=== PATIENT | female | born 1955 | race Caucasian/White ===

== ENCOUNTER 2023-04-05 11:20 | Outpatient (OUT) | payer MEDICARE, BC, SELFPAY ==
[2023-04-05 12:18] LABS: SARS-CoV-2 Ag NEGATIVE (NEGATIVE)
[2023-04-06 15:33] LABS: SARS-CoV-2 NAA NOT DETECTED (NOT DETECTE)
== END 2023-04-05 11:21 | disposition home or self-care (01) ==
PROVIDERS: PCP Internal Medicine; Visit Provider Internal Medicine
DX: Z20.822 Contact with and (suspected) exposure to COVID-19 (principal)
CPT/HCPCS: 87635; 87811

== ENCOUNTER 2023-05-04 08:44 | Outpatient (OUT) | payer MEDICARE, BC, SELFPAY ==
--- NOTE | 2023-05-04 08:47 | MM_ITS ---
Patient: TAMAR IVEY Exam Date: 05/04/2023 : 1955 Gender:F Ordering : DR Brayan Gaviria D.O. Admission #: [id number] Family : Order #: [id number] CLICK HERE TO VIEW EXAM RADIOLOGY REPORT PROCEDURE: MM TOMOSYNTHESIS SCREENING BI COMPARISON: MM TOMOSYNTHESIS SCREENING BI, 12/06/2020. MM TOMOSYNTHESIS SCREENING BI, 08/29/2012. INDICATIONS: Screening Calculator Name NCI Breast Cancer Risk Assessment Tool 5 Year Breast Cancer Risk 1.90% Lifetime Breast Cancer Risk 6.70% Personal Breast Cancer No Personal Ovarian Cancer No Treatments None Family Cancers Aunt-maternal with colon cancer at age 82. LOCATION: [facility] BREAST COMPOSITION: Almost entirely fatty. FINDINGS: DIAGNOSTIC CATEGORY 2--BENIGN FINDING: RIGHT BREAST: No significant suspicious finding. Scattered benign-appearing calcifications are present. No significant change has occurred. LEFT BREAST: No significant suspicious finding. Scattered benign-appearing calcifications are present. No significant change has occurred. RECOMMENDATIONS: ROUTINE MAMMOGRAM AND CLINICAL EVALUATION IN 12 MONTHS. PLEASE NOTE: A NORMAL MAMMOGRAM DOES NOT EXCLUDE THE POSSIBILITY OF BREAST CANCER. A CLINICALLY SUSPICIOUS PALPABLE LUMP SHOULD BE BIOPSIED. Dictated by: Darrin Dia M.D. on 05/05/2023 at 12:37 Approved by: Darrin Dia M.D. on 05/05/2023 at 12:39
--- NOTE | 2023-05-04 08:48 | XR_ITS ---
The [address] [address] Patient Name: TAMAR IVEY MRN: [id number] date: 1955 Sex: F Assigned Patient Location: [facility] Current Patient Location: [facility] Accession/Order Number: [id number] Exam Date: 05/04/2023 09:10 Report Date: 05/04/2023 09:43 At the request of: TRAVIS YAN Procedure: XR DEXA axial skeleton DEXA Bone Density Study CLINICAL:67 years Female. Evaluate bone mineral density. FINDINGS: The bone density study was assessed by dual-energy x-ray absorptiometry with the Hologic scanner. The test results are expressed in T-Score, which is used for diagnosis for osteoporosis, and reflects the standard deviations from the mean peak bone mineral density in young adults. Additional information regarding the Z-Score reflects the standard deviations from the mean peak bone mineral density for age- and gender- matched subject. Lumbar Spine (L1-L4): BMD (gm/cm2): 1.219 T-Score: 0.3 Left TOTAL Hip: BMD (gm/cm2): 0.889 T-Score: -0.9 Left hip, NECK: BMD (gm/cm2): 0.769 T-Score: -1.9 Right TOTAL Hip: BMD (gm/cm2): 0.857 T-Score: -1.2 Right hip, NECK: BMD (gm/cm2): 0.700 T-Score: -2.4 XR/XR DEXA axial skeleton IMPRESSION: 1. Bone mineral density by WHO criteria: Osteopenia. Fracture risk is increased. REFERENCE: In postmenopausal women and males 50 or over, comparison of the measured bone mineral density with the average value in young normal subjects (the T-Score) has been found to be useful in assessing fracture risk. Fracture risk approximately doubles for each 1.0 standard deviation (SD) that the individuals hip or spine bone mineral density is below the average value of young normal subjects. The World Health Organization (WHO) has provided the following definitions: 1. Normal: T-Score within one standard deviation of young adult mean value (T-Score at or above -1.0). 2. Osteopenia (low bone mass): T-Score more than one standard deviation below the young adult mean but less than 2.5 standard deviations below the young adult mean (T-Score between -1.0 and -2.5). 3. Osteoporosis: T-Score at or more than 2.5 standard deviations below the young adult mean (T-Score at or less than -2.5). 4. Severe Osteoporosis (established osteoporosis): T-Score more than 2.5 standard deviations below young adult and one or more fragility fracture (T-Score less than -2.5 plus fragility fractures). Electronically authenticated by: JACEK WOODY Date: 05/04/2023 09:43
[2023-05-04 11:54] LABS: Basophils Absolute Auto 0.1 10^3/uL (0.0-0.1); Basophils Percent Auto 1.2 % (0.2-2.0); Eosinophils Absolute Auto 0.2 10^3/uL (0.0-0.7); Eosinophils Percent Auto 2.1 % (0.9-7.0); Hematocrit 42.1 % (36.0-48.0); Hemoglobin 13.9 g/dL (12.0-16.0); Immature Granulocytes Abs Auto 0.01 10^3/uL (0.00-0.03); Immature Granulocytes Pct Auto 0.1 % (0.0-0.5); Lymphocytes Absolute Auto 1.9 10^3/uL (1.2-3.8); Lymphocytes Percent Auto 25.6 % (20.5-60.0); Mean Corpuscular Hemoglobin 30.8 pg (26.7-34.0); Mean Corpuscular Volume 93.1 fL (81.0-99.0); Mean Platelet Volume 8.6 fL (9.5-13.5); Monocytes Absolute Auto 0.5 10^3/uL (0.3-0.8); Monocytes Percent Auto 7.3 % (1.7-12.0); Neutrophils Absolute Auto 4.7 10^3/uL (1.4-6.5); Neutrophils Percent Auto 63.7 % (43.0-75.0); Platelet Count 304 10^3/uL (150-450); Red Blood Count 4.52 10^6/uL (4.20-5.40); Red Cell Distribution Width 12.8 % (11.0-15.0); White Blood Count 7.3 10^3/uL (4.0-11.0)
[2023-05-04 12:36] LABS: Anion Gap 7.8; BUN Creatinine Ratio 18.9; Calcium 9.1 mg/dL (8.5-10.1); Carbon Dioxide 29.9 mmol/L (21.0-32.0); Chloride 101 mmol/L (98-107); Estimated GFR (African America >60 (>=60); Estimated GFR (Non-African Ame >60 (>=60); Glucose 83 mg/dL (74-106); Potassium 4.7 mmol/L (3.5-5.1); Sodium 134 mmol/L (136-145); Thyroid Stimulating Hormone 1.194 uIU/mL (0.358-3.740)
[2023-05-05 07:10] LABS: Vitamin D, 25-Hydroxy 81.9 ng/mL (30.0-100.0)
== END 2023-05-04 08:45 | disposition home or self-care (01) ==
LOC: MAMMO 08:44
PROVIDERS: PCP Internal Medicine; Visit Provider Internal Medicine
DX: Z00.00 Encounter for general adult medical examination without abnormal findings (principal); Z12.31 Encounter for screening mammogram for malignant neoplasm of breast; Z78.0 Asymptomatic menopausal state; R53.83 Other fatigue; E55.9 Vitamin D deficiency, unspecified; Z80.0 Family history of malignant neoplasm of digestive organs; M85.80 Other specified disorders of bone density and structure, unspecified site
CPT/HCPCS: 36415; 77063; 77067; 77080; 80048; 82306; 84443; 85025

== ENCOUNTER 2024-05-18 10:48 | Outpatient (RCR) | payer MEDICARE, BC, SELFPAY | END 2024-06-16 14:00 | disposition home or self-care (01) | LOC: PT 10:48 | PROVIDERS: PCP Internal Medicine; Visit Provider Orthopaedic Surgery | DX: M17.11 Unilateral primary osteoarthritis, right knee (principal) | CPT/HCPCS: 97110; 97112; 97140; 97162 ==

== ENCOUNTER 2025-02-15 13:31 | Outpatient (OUT) | payer MEDICARE, BC, SELFPAY ==
--- OUTSIDE RECORDS SUMMARY | 2025-02-01 10:15 | XMS_ITS | Encounter Summary ---
Author Organization [facility] Address [address] [place] [address] Care Team Providers Care Fruit Washer Name Role Phone Brayan Gaviria DO Primary Care Provider Encounter Details Date Type Department Care Team (Late st Contact Info) Description 02/01/2025 10:15 AM EDT Office Visit [facility] [address] [facility] [address] [place] [address] Maria R Ramirez MD [address] [facility] [address] [place] [address] Seborrheic keratosis (Primary Dx); Lentigines; Seborrheic keratosis, inflamed; History of SCC (squamous cell carcinoma) of skin Social History Tobacco Use Types Packs/Day Years Used Date Smoking Tobacco: Former Cigarettes 1 43.8 0 04/27/1975 - 01/26/2019 Smokeless Tobacco: Never Alcohol Use Standard Drinks/Week Comments Never 0 (1 standard drink = 0.6 oz pur e alcohol) Comments Unknown Sex and Gender Information Value Date Recorded Sex Assigned at Female 01/09/2024 11:56 AM EDT Legal Sex Female 7:09 PM EDT Gender Identity Female 01/09/2024 11:56 AM EDT Sexual Orientation Not on file documented as of this encounter Progress Notes * Maria R Ramirez MD - 02/01/2025 10:15 AM EDT Skin Check Location: Patient requests a full body skin examination Dermatologic history: history of Actinic Keratosis, history of Basal Cell Carcinoma, history of Squamous Cell Carcinoma Last visit: Last skin check 1 year ago, last office visit 01/30/2025 (Mohs to right zygomatic area) Lesions: Location: arms, chest Duration: months Quality: itchy Associated symptoms: enlarged, rough Treatments: none Established patient All pertinent medical history, medications, and allergies were reviewed. General Exam: alert, oriented to person, place, and time, normal affect, well appearing Unaccompanied Areas not examined despite medical recommendation: Under socks Scalp, Examined , exam limited by hair Right leg Examined Head, Face Examined Left leg Examined Neck Examined Right foot Not Examined Chest Examined Patient kept bra on Left foot Not Examined Back Examined Buttocks Examined Patient kept underwear on Abdomen Examined Digits,nails: Examined Right arm Examined Left arm Examined Lymphatics: Not examined Hands Examined Skin Exam 1. SEBORRHEIC KERATOSIS Generalized Stuck on verrucous, jaimes-brown papules and plaques. Patient was counseled regarding these benign growths. Removal is normally not necessary, but they may be removed if they are symptomatic or for cosmetic reasons. 2. LENTIGINES Generalized Scattered jaimes macules in sun-exposed areas. The patient was informed that lentigines are benign pigmented lesions that occur on sun-exposed andsun-damaged skin. No treatment is necessary. Recommended regular use of broad spectrum sunscreen SPF 30 or higher 3. SEBORRHEIC KERATOSIS, INFLAMED (3) Left Upper Arm - Anterior, Right Breast, Right Forearm - Posterior [place] and brown stuck on verrucous scaly papule with surrounding erythema The patient was informed that symptomatic seborrheic keratoses are benign growths that become inflamed, itchy, tender, traumatized, caught on clothing, or bleed. Symptomatic lesions can be treated with cryotherapy or curretage. Thicker lesions treated with cryotherapy may require more than one treatment. The patient was instructed to notify the office if abnormal redness or tenderness develops atthe treatment site. Cryotherapy today, see procedure note. Diagnosis: Inflamed seborrheic keratosis Indication: Inflamed Consent: Verbal consent was obtained and risks were discussed, including, but not limited to risks of scarring, darker or alligator shear operator pigmentary changes, recurrence, incomplete removal and infection. Method: Liquid nitrogen was used to treat the lesion(s) with two 5-10 second freeze-thaw cycles Number of lesions treated: 3 Post-procedure instructions: Instructions were given orally and in writing. The office will be contacted if the lesion fails to resolve despite treatment, or if a side effect develops such as abnormal crusting, scabbing, redness or tenderness Cryotherapy, skin lesion - Left Upper Arm - Anterior, Right Breast, Right Forearm - Posterior 4. HISTORY OF SCC (SQUAMOUS CELL CARCINOMA) OF SKIN Left Orthodoxy No evidence of recurrence at SCC scar. The patient was counseled that scars from excisional sites of nonmelanoma skin cancers should be monitored closely for recurrence. The patient was instructed to contact the office for any new, changing, or symptomatic moles. The patient was also instructed to contact the office for any new lesions that develop within or around the previous surgery scar. Next Visit: 6 months documented in this encounter Miscellaneous Notes * Addendum Note - Maria R Ramirez MD - 02/01/2025 10:15 AM EDTAddended by: MARIA R RAMIREZ on: 02/01/2025 04:21 PM Modules accepted: Level of Service documented in this encounter Plan of Treatment Upcoming Encounters Date Type Department Care Team (Late st Contact Info) Description 01/31/2026 10:05 AM EDT Office Visit [facility] [address] [place] [phone] Maria R Ramirez MD [address] [place] [address] documented as of this encounter Procedures Procedure Name Priority Date/Time Associated Diagnosis Comments CRYOTHERAPY SKIN LESION Routine 02/02/20 10:08 AM EDT Seborrheic keratosis, inflamed documented in this encounter Results * Cryotherapy, skin lesion (02/01/2025 10:08 AM EDT) us Maria R Ramirez MD DERM PROCEDURE ORDERABLES Fin al Result documented in this encounter Visit Diagnoses Diagnosis Seborrheic keratosis- Primary Lentigines Seborrheic keratosis, inflamed History of SCC (squamous cell carcinoma) of skin Personal history of other malignant neoplasm of skin documented in this encounter Care Teams Fruit Washer Relationship Specialty Start Date End Date Brayan Gaviria DO [address] [place] [phone] PCP - General Internal Medicine 03/02/24 documented as of this encounter
--- OUTSIDE RECORDS SUMMARY | 2025-02-15 13:33 | XMS_ITS | Encounter Summary ---
Author Organization [facility] Address [address] [facility] [place] [address] Care Team Providers Care Chucking Machine Set Up Operator Tool Name Role Phone Brayan Gaviria DO Primary Care Provider Encounter Details Date Type Department Care Team (Late st Contact Info) Description 02/01/2025 Bamboo flowsheet [facility] [address] [place] [address] Magdalena Cuenca MD [address] [facility] [address] [place] [address] Social History Tobacco Use Types Packs/Day Years [...] on file documented as of this encounter Plan of Treatment Upcoming Encounters Date Type Department Care Team (Late st Contact Info) Description 01/31/2026 10:05 AM EDT Office Visit [facility] [address] [place] [address] Magdalena Cuenca MD [address] [facility] [address] [place] [address] documented as of this encounter Visit Diagnoses Not on filedocumented in this encounter Care Teams Chucking Machine Set Up Operator Tool Relationship Specialty Start Date End Date Brayan Gaviria DO [address] [place] [phone] PCP - General Internal Medicine 03/02/24 documented as of this encounter
--- OUTSIDE RECORDS SUMMARY | 2025-02-15 13:33 | XMS_ITS | Clinical Summary ---
Author Organization [facility] Address [address] [place] [address] Care Team Providers Care Sheet Rock Installation Helper Name Role Phone Unavailable Primary Care Provider Unavailabl e Social History Tobacco Use Types Packs/Day Years Used Date Smoking Tobacco: Never Assessed [place] Safety & Environment Answer Date Rec orded Fear of Current or Ex-Partner Not on file Emotionally Abused Not on file 11/04/2023 Physically Abused Not on file 11/04/2023 Sexually Abused Not on file 11/04/2023 Physically or Sexually Abused Not on file Sex and Gender Information Value Date Recorded Sex Assigned at Not on file Gender Identity Not on file Sexual Orientation Not on file Plan of Treatment Not on file
--- OUTSIDE RECORDS SUMMARY | 2025-02-15 13:33 | XMS_ITS | Referral Summary ---
Author Organization [facility] Address [address] [place] [address] Care Team Providers Care Hat Block Maker Name Role Phone Unavailable Primary Care Provider [...]
--- OUTSIDE RECORDS SUMMARY | 2025-02-15 13:33 | XMS_ITS | Encounter Summary ---
Author Organization [facility] Address [address] [facility] [place] [address] Care Team Providers Care Land Use Planner Name Role Phone Brayan Gaviria DO Primary Care Provider [phone] Encounter Details Date Type Department Care Team (Latest Contact Info) Description 02/01/2025 Travel Social History Tobacco Use Types Packs/Day Years [...] DERM [address] [place] [address] Magdalena Cuenca MD [address] [facility] [address] [place] [address] documented as of this encounter Visit Diagnoses Not on filedocumented in this encounter Care Teams Land Use Planner Relationship Specialty Start Date End Date Brayan Gaviria DO [address] [place] [phone] PCP - General Internal Medicine 03/02/24 documented as of this encounter
--- OUTSIDE RECORDS SUMMARY | 2025-02-15 13:33 | XMS_ITS | Patient Health Record ---
Author Organization [facility] Address [address] [place] [address] Care Team Providers Care Yard Person Name Role Phone Everette Yasronaldo Primary Care Provider Unavailabl e Reason For Referral No Information Plan Of Treatment No Information Insurance Providers Payer Name Payer Address Payer Phone Subscriber Number Group Number Insured Name Patient Relationship to Insured Coverage Start Date Coverage End Date PROMPT PAY/Bill to Patient YeceniaMaribell david Self - patient is the insured
--- OUTSIDE RECORDS SUMMARY | 2025-02-15 13:33 | XMS_ITS | Encounter Summary ---
Author Organization [facility] Address [address] [place] [address] Care Team Providers Care Adobe Block Maker Name Role Phone Brayan Gaviria DO Primary Care Provider [phone] Brayan Gaviria DO Primary Care Provider [phone] Encounter Details Date Type Department Care Team (Late st Contact Info) Description 01/20/2023 Abstract [facility] [place] [address] Magdalena Cuenca MD [address] [facility] [address] [place] [address] Social History Tobacco Use Types Packs/Day Years Used Date Smoking Tobacco: Never Tobacco Cessation:Counseling Given: Not Answered Comments Unknown Sex and Gender Information Value [...] Office Visit [facility] [address] [facility] [address] [place] [phone] Magdalena Cuenca MD [address] [facility] [address] [place] [address] documented as of this encounter Visit Diagnoses Not on filedocumented in this encounter Care Teams Adobe Block Maker Relationship Specialty Start Date End Date Brayan Gaviria DO PCP - General Internal Medicine 02/04/23 03/01/24 Brayan Gaviria DO [address] [place] [phone] PCP - General Internal Medicine 03/02/24 documented as of this encounter
--- OUTSIDE RECORDS SUMMARY | 2025-02-15 13:33 | XMS_ITS | Clinical Summary ---
Author Organization [facility] Address [address] [place] [address] Care Team Providers Care Rn Cvor Name Role Phone Brayan Gaviria DO Primary Care Provider [phone] Allergies Active Allergy Reactions Criticality Noted Date Comments Budesonide-Formoterol Fumarate 03/02/2024 Other Reaction(s): Unknown Medications MAGNESIUM PO Active VITAMIN D PO Vitamin D Active albuterol HFA 90 mcg/act inhaler Inhale 2 puffs every 4 (four) hours if needed for wheezing Active Omeprazole Magnesium (PRILOSEC OTC PO) 4 Active Ascorbic Acid (vitamin C) 100 MG tablet Take 100 mg by mouth Daily Active cholecalciferol (Vitamin D-3) 50 MCG (1999 UT) capsule Take 2,000 Units by mouth 3 (three) times a week Active glucosamine-cho ndroitin 500-400 MG tablet Take 1 tablet by mouth in the morning and 1 tablet in the evening and 1 tablet before bedtime. 01/31/20 25 Discontinu ed(Therapy completed) Sulfamethoxazol e-Trimethoprim (BACTRIM DS PO) 4 01/26/20 25 Discontinu ed(Therapy completed) Active Problems No known active problems Encounters Date Type Department Care Team Description 02/01/2025 10:15 AM EDT Office Visit [facility] [address] [place] [phone] Magdalena Cuenca MD Seborrheic keratosis (Primary Dx); Lentigines; Seborrheic keratosis, inflamed; History of SCC (squamous cell carcinoma) of skin 02/01/2025 Bamboo flowsheet [facility] [address] [place] [address] Magdalena Cuenca MD 02/01/2025 Travel 01/30/2025 8:30 AM EDT Office Visit [facility] [address] [place] [address] Gregor Butterfield MD Basal cell carcinoma of skin of other parts of face 01/30/2025 Travel from Last 3 Months Family History Medical History Relation Name Comments Broken bones Mother [facility] No Known Problems Other Melanoma Neg Hx Relation Name Status Comments Mother [facility] Other Social History Tobacco Use Types Packs/Day Years Used Date Smoking Tobacco: Former Cigarettes 1 43.8 0 04/27/1975 - 01/26/2019 Smokeless Tobacco: Never Tobacco Cessation:Counseling Given: Not Answered Alcohol Use Standard Drinks/Week Comments Never 0 (1 standard drink = 0.6 oz pur e alcohol) Comments Unknown Sex and Gender Information Value Date Recorded Sex Assigned at Female 01/09/2024 11:56 AM EDT Legal Sex Female 7:09 PM EDT Gender Identity Female 01/09/2024 11:56 AM EDT Sexual Orientation Not on file Last Filed Vital Signs Vital Sign Reading Time Taken Comments Blood Pressure 120/82 01/30/2025 8:44 AM EDT Pulse - - Temperature 36.3 C (97.4 F) 04/06/2024 12:52 PM EDT Respiratory Rate - - Oxygen Saturation - - Inhaled Oxygen Concentration - - Weight 85.7 kg (189 lb) 04/06/2024 12:52 PM EDT Height 165.1 cm (5' 5 ) 04/06/2024 12:52 PM EDT Body Mass Index 31.45 04/06/2024 12:52 PM EDT Plan of Treatment Upcoming Encounters Date Type Department Care Team (Late st Contact Info) Description 01/31/2026 10:05 AM EDT Office Visit [facility] [address] [place] [address] Magdalena Cuenca MD [address] [facility] [address] [address] [place] [address] Procedures Procedure Name Priority Date/Time Associated Diagnosis Comments CRYOTHERAPY SKIN LESION Routine 02/01/2025 10:08 AM EDT Seborrheic keratosis, inflamed MOHS SURGERY Routine 01/29/2025 12:41 PM EDT Basal cell carcinoma of skin of other parts of face from Last 3 Months Results * Cryotherapy, skin lesion (02/01/2025 10:08 AM EDT) us Magdalena Cuenca MD DERM PROCEDURE ORDERABLES Fin al Result * Mohs surgery (01/29/2025 12:41 PM EDT) Narrative Jewels Angela LPN - 01/29/2025 12:41 PM EDT Consent obtained: written (The rationale for Mohs as well as the risks, benefits, and alternatives. The risks of infection, scarring, bleeding, prolonged wound healing, incomplete removal, allergy to anesthesia or meds, nerve injury, and recurrence were addressed.) [place] Protocol: Procedure explained and questions answered to patient or proxy's satisfaction: Yes Test results available and properly labeled: Yes Pathology report reviewed: Yes Photo or diagram used for site identification: Yes Site/side marked: Yes Anticoagulation: Is the patient taking prescription anticoagulant and/or aspirin prescribed/recommended by a physician? No Anesthesia: Anesthesia method: local infiltration Local anesthetic: lidocaine 1% WITH epi and sodium bicarbonate Procedure Details: Biopsy accession number: [id number] Biopsy lab: [facility] Date of biopsy: 02/01/2024 Frozen section biopsy performed: Yes Specimen debulked: No Pre-Op diagnosis: basal cell carcinoma BCC subtype: nodular MohsAIQ Surgical site (if tumor spans multiple areas, please select predominant area): cheek (including jawline) Surgery side: right Surgical site (from skin exam): Right Zygomatic Area Pre-operative length (cm): 1.3 Pre-operative width (cm): 0.8 Indications for Mohs surgery: anatomic location where tissue conservation is critical Other indications for Mohs surgery: tumor size is greater than 1 cm on the face Previously treated? No Mohs Appropriate Use Criteria Score: 9 Details of micrographic surgery: Mohs accession number: [id number] Micrographic Surgery Details: Post-operative length (cm): 2 Post-operative width (cm): 1.6 Number of Mohs stages: 2 Stage 1 Comments: The area was prepped with Betadine, draped in a sterile fashion, and infiltrated with local anesthetic. Sterile technique was used throughout the procedure. The marked area of clinical tumor with a small rim of clinically normal surrounding skin was removed using Mohs technique with beveled edges. Hash aceves were placed for orientation of the specimen. Hemostasis was achieved with electrodessication. After hemostasis, the defect was measured and recorded, a temporary sterile dressing was placed over the wound, and the patient was escorted to the waiting area. The specimen was oriented, mapped, and if necessary, divided into sections. A Mohs map was prepared. The specimen was placed in a labeled jose dish and was taken to the Mohs lab where it was chromacoded and processed. Mohs sections were prepared with serial tissue sections, stained, and evaluated by Dr. Butterfield for interpretation of deep and peripheral margins. The Mohs map was marked accordingly. Amount of lidocaine used: 2.0 cc Estimated blood loss: minimal Defect size: 1.8 x 1.4 cm Number of blocks per stage: 1 Number of positive blocks: 1 Tumor features identified on Mohs section: basal carcinoma Tumor features identified on Mohs section comment: nodular pattern Depth of tumor invasion after stage: dermis Stage 2 Comments: The patient returned to the procedure room, the dressing was remove, the tumor area was re-prepped and draped, and anesthesia was assessed and augmented as necessary. A layer of tissue around the positive margin(s) was removed, and the tissue was oriented, mapped, and processed in an identical fashion as for Stage 1. Hemostasis was achieved and dressing placed as in Stage 1. The patient was escorted to the waiting area. As with Stage 1, Mohs sections were prepared with serial tissue sections, stained, and evaluated by Dr. Butterfield for interpretation of deep and peripheral margins. The Mohs map was updated. Assistants: Andrew Angela LPN Amount of lidocaine used: 2.0 cc Estimated blood loss: minimal Defect size: 2.0 x 1.6 cm Number of blocks: 1 Number of positive blocks: 0. Tumor free margins were obtained and the Mohs procedure was considered complete. Depth of tumor invasion after stage: dermis Depth of tumor invasion after stage comment: focally to adipose Patient tolerance of procedure: tolerated well, no immediate complications Reconstruction: Was the defect reconstructed?: No Antibiotics: Were antibiotics given on the day of surgery?: No Gregor Butterfield MD DERM PROCEDURE ORDERABLES Fi nal Result from Last 3 Months Insurance MEDICARE [facility] Care Teams Rn Cvor Relationship Specialty Start Date End Date Brayan Gaviria DO [address] [place] [phone] PCP - General Internal Medicine 03/02/24
--- NOTE | 2025-02-15 13:35 | MM_ITS ---
Patient Name: TAMAR IVEY MR#: [id number] : 1955 Exam Date: 02/15/2025 Ordering Doctor: DR TRAVIS YAN D.O. RADIOLOGY REPORT PROCEDURE: MM TOMOSYNTHESIS SCREENING BI COMPARISON: MM TOMOSYNTHESIS SCREENING BI, 05/04/2023. MM TOMOSYNTHESIS SCREENING BI, 12/06/2020. MM TOMOSYNTHESIS SCREENING BI, 08/29/2012. INDICATIONS: Screening Calculator Name NCI Breast Cancer Risk Assessment Tool 5 Year Breast Cancer Risk 1.90% Lifetime Breast Cancer Risk 6.20% Personal Breast Cancer No Personal Ovarian Cancer No Treatments None Family Cancers Aunt-maternal with colon cancer at age 82. LOCATION: [facility] BREAST COMPOSITION: The breasts are almost entirely fatty. FINDINGS: DIAGNOSTIC CATEGORY 1--NEGATIVE. RECOMMENDATIONS: ROUTINE MAMMOGRAM AND CLINICAL EVALUATION IN 12 MONTHS. PLEASE NOTE: A NORMAL MAMMOGRAM DOES NOT EXCLUDE THE POSSIBILITY OF BREAST CANCER. A CLINICALLY SUSPICIOUS PALPABLE LUMP SHOULD BE BIOPSIED. RIGHT BREAST: No significant suspicious finding. LEFT BREAST: No significant suspicious finding. Dictated by: Leander Skelton DO on 02/20/2025 at 15:30 Approved by: Leander Skelton DO on 02/20/2025 at 15:33
== END 2025-02-15 13:32 | disposition home or self-care (01) ==
LOC: MAMMO 13:31
PROVIDERS: PCP Internal Medicine; Visit Provider Internal Medicine
DX: Z12.31 Encounter for screening mammogram for malignant neoplasm of breast (principal); Z80.0 Family history of malignant neoplasm of digestive organs
CPT/HCPCS: 77063; 77067